=== PATIENT | male | born 1990 | race Caucasian/White ===

== ENCOUNTER 2017-03-25 14:41 | Inpatient (IN) | payer BC, OTHER ==
[~2017-03-25] VITALS: Ht 175.3 cm; Wt 61.2 kg
[2017-03-25] MEDS ORDERED: CLONIDINE HCL 0.1 MG TABLET PO PRN (16:45)
[2017-03-25] MEDS ORDERED: MAGNESIUM HYDROXIDE 30 ML LIQUID UDC PO PRN (16:45)
[2017-03-25] MEDS ORDERED: IBUPROFEN 400 MG TABLET PO PRN (16:45)
[2017-03-25] MEDS ORDERED: LORAZEPAM 1 MG TABLET PO PRN ×2 (16:45)
[2017-03-25] MEDS ORDERED: MAG HYDROX/AL HYDROX/SIMETH 30 ML LIQUID UDC PO PRN (16:45)
[2017-03-25] MEDS ORDERED: MIRALAX 17 GM POWD.PACK PO PRN (16:45)
[2017-03-25] MEDS ORDERED: ONDANSETRON 4 MG/2 ML VIAL IM PRN (16:45)
[2017-03-25] MEDS ORDERED: LOPERAMIDE HCL 2 MG CAPSULE PO PRN ×2 (16:45)
[2017-03-25] MEDS ORDERED: LORAZEPAM 2 MG/1 ML VIAL IM PRN (16:45)
[2017-03-25] MEDS ORDERED: DICYCLOMINE HCL 20 MG TABLET PO PRN (16:45)
[2017-03-25] MEDS ORDERED: THIAMINE HCL 200 MG/2 ML VIAL IM ONE (17:35)
--- NOTE | 2017-03-25 17:36 | NUR ---
intake pre-assessment: pt is in stable condition at this time V/S B/P: 120/81, P:78,T:97.0, R:16, 02%: 99. PT verbalized nka. pt without home medications. pt states he smokes 1 pack a day, drinks 80 oz of beer and 1/5 of hard alcohol, either Gin or whiskey. last drank at 0230 am. Pt also verbalizes he uses cocaine 1 gram to 2 grams every other day. pt with treatment HX: [facility], 3 years ago and [facility] for 8 months and has relapsed for the past 2 months. pt without home medications. Pt verbalized medical hx of Depression and Anxiety. Pt reports no seizure hx.
[2017-03-25 18:00] VITALS: BP 120/81
[2017-03-25 18:25] LABS: *AMPHETAMINE, URINE NEGATIVE (NEGATIVE); *BARBITURATE, URINE NEGATIVE (NEGATIVE); *CANNABINOID, URINE NEGATIVE (NEGATIVE); *COCCAINE, URINE POSITIVE (NEGATIVE); *OPIATE, URINE NEGATIVE (NEGATIVE); *PHENCYCLIDINE SCREEN,URINE NEGATIVE (NEGATIVE)
--- NOTE | 2017-03-25 18:30 | NUR ---
ADMISSION NOTE: Patient is 26 yo old male admitted at 18:00pm for supervised alcohol withdrawal. Alert and oriented X4, full code, nka, on fall and seizure precaution (no history of seizure). Denies SOB, chest pain, skin is intact with small abrasion on L elbow, open to air. CIWA was 9. Reports headache, sweating, anxiety, nausea and tactile sensation. Declined HIV testing and declined vit B injection at this time. Patient was oriented to unit, breaux routines, call lights. Substance use history: 1) Alcohol using 80oz beer and 1/5 hard alcohol X 2 months, last use 03/27/17 and used 60 oz beer and bottle of hard alcohol 2) Cocaine 1-2g (intermittent) X2 weeks, last use 03/24/17 and used 2 g Rehab history: [facility] 1 year (13 years ago) [facility] 8 months Addendum: 03/29/17 at 0850 by KELI SCHWARTZ RN Pt denies having a PCP
[2017-03-25 19:07] LABS: ALANINE AMINOTRANSFERASE 24 U/L (16-63); ALKALINE PHOSPHATASE 86 U/L (50-136); AMYLASE 34 U/L (25-115); ASPARTATE AMINOTRANSFERASE 25 U/L (15-37); CARBON DIOXIDE 32 mmol/L (21-32); CHLORIDE 99 mmol/L (98-107); CREATININE 0.9 mg/dL (0.6-1.3); GLUCOSE 80 mg/dL (74-106); LIPASE 152 U/L (73-393); MAGNESIUM 2.1 mg/dL (1.8-2.4); POTASSIUM 3.8 mmol/L (3.5-5.1); TOTAL PROTEIN, SERUM 8.1 g/dL (6.4-8.2); UREA NITROGEN, BLOOD 11 mg/dL (7-18)
[2017-03-25 19:12] LABS: BASOPHILS # (AUTO) 0.1 K/uL (0.0-8.0); EOSINOPHILS # (AUTO) 0.1 K/uL (0.0-0.7); EOSINOPHILS % (AUTO) 0.8 % (0.0-7.0); HEMATOCRIT 46.9 % (40-50); HEMOGLOBIN 15.7 G/DL (14.0-18.0); LYMPHOCYTES # (AUTO) 1.4 K/UL (0.8-4.8); LYMPHOCYTES % (AUTO) 19.8 % (20.5-51.5); MEAN CORPUSCULAR HGB CONC 33 g/dL (32.0-37.0); MEAN CORPUSCULAR VOLUME 92.6 FL (82.0-92.0); MONOCYTES # (AUTO) 0.7 K/UL (0.1-1.30); MONOCYTES % (AUTO) 10.6 % (0.0-11.0); NEUTROPHILS # (AUTO) 4.5 K/UL (1.8-8.9); NEUTROPHILS % (AUTO) 67.8 % (38.5-71.5); PLATELET COUNT (AUTO) 223 K/UL (150-450); RED BLOOD CELL COUNT(AUTO) 5.07 MIL/UL (4.7-6.1); WHITE BLOOD COUNT (AUTO) 6.8 K/UL (4.0-11.2)
[2017-03-25 19:13] LABS: ETHANOL < 3 MG/DL (0-0)
[2017-03-25 19:18] LABS: THYROID STIMULATING HORMONE 0.938 mIU/mL (0.358-3.740)
[2017-03-25 20:00] VITALS: BP 123/61
--- NOTE | 2017-03-25 20:00 | NUR ---
START OF SHIFT NOTE PATIENT IN ROOM, RESTING . PATIENT ALERT AND ORIENTED X 3. PATIENT REPORTS ANXIETY, SWEATING, NAUSEATED BUT NO EMESIS, HEADACHE /. RECEIVED REPORT FROM DAY SHIFT NURSE. PATIENT IS A 26 YEAR OLD MALE NEWLY ADMITTED FOR ETOH DEPENDENCE. PATIENT WAS PLACED ON 4 DAY ATIVAN TAPER. PATIENT IS FULL CODE, REGULAR DIET AND NO KNOWN ALLERGY. PATIENT REPORTS PMH OF DEPRESSION AND ANXIETY. PATIENT DRINKS 80 OZ OF BEER AND 1/5 OF HARD ALCOHOL GIN OR WHISKEY FOR 2 MONTHS AND USE COCAINE 1-2 GRAM INTERMITTENTLY FOR 2 WEEKS . PATIENT WITH LEFT ELBOW ABRASION. ON FALL/SEIZURE PRECAUTION. LAST CIWA WAS 9 . PATIENT REFUSED THIAMINE INJECTION. PATIENT DID NOT REQUIRE ANY PRN MEDICATION. SAFETY MEASURES IN PLACE. CALL LIGHT IN REACH. WILL CONTINUE TO MONITOR.
[2017-03-25] MEDS: ACETAMINOPHEN 325 MG TABLET PO PRN (20:40)
--- NOTE | 2017-03-25 20:40 | NUR ---
PRN ZOFRAN AND TYLENOL ADMINISTRATION PATIENT REPORTS NAUSEATED NO EMESIS AND HEADACHE 03/10. PRN ZOFRAN AND TYLENOL GIVEN. WILL MONITOR FOR EFFECTIVENESS
[2017-03-25] MEDS: ONDANSETRON ODT 4 MG TAB.RAPDIS SL PRN (20:41)
[2017-03-25] MEDS ORDERED: LORAZEPAM 1 MG TABLET PO SCH (21:00)
--- NOTE | 2017-03-25 21:41 | NUR ---
PRN ZOFRAN AND TYLENOL RE-ASSESSMENT PATIENT STATES NAUSEA CEASES , TYLENOL HELPFUL PAIN LEVEL 2/10, TOLERABLE . WILL CONTINUE TO MONITOR.
[2017-03-26] VITALS (7 sets, daily range): BP systolic 102–130; BP diastolic 60–76
[2017-03-26] MEDS: diphenhydrAMINE 50 MG CAPSULE PO PRN ×2 (00:54→22:55)
--- NOTE | 2017-03-26 00:54 | NUR ---
PRN BENADRYL ADMINISTRATION PATIENT REQUESTS FOR SLEEP AID. PRN BENADRYL GIVEN. WILL MONITOR FOR EFFECTIVENESS
--- NOTE | 2017-03-26 01:54 | NUR ---
PRN BRENT RE-ASSESSMENT PATIENT IN BED SLEEP. RESPIRATION EVEN AND UNLABORED. NO S/S OF DISTRESS. SAFETY MEASURES IN PLACE . CALL LIGHT IN REACH. WILL CONTINUE TO MONITOR
--- NOTE | 2017-03-26 07:16 | NUR ---
END OF SHIFT NOTE MONITORED PATIENT THROUGHOUT THE SHIFT. PATIENT REMAIN ALERT AND ORIENTED X 3. PATIENT REPORTED ANXIETY, SWEATING, NAUSEATED BUT NO EMESIS, HEADACHE /. PATIENT IS A 26 YEAR OLD MALE NEWLY ADMITTED FOR ETOH DEPENDENCE. PATIENT WAS PLACED ON 4 DAY ATIVAN TAPER. PATIENT IS FULL CODE, REGULAR DIET AND NO KNOWN ALLERGY. PATIENT REPORTS PMH OF DEPRESSION AND ANXIETY. PATIENT DRINKS 80 OZ OF BEER AND 1/5 OF HARD ALCOHOL GIN OR WHISKEY FOR 2 MONTHS AND USE COCAINE 1-2 GRAM INTERMITTENTLY FOR 2 WEEKS . PATIENT WITH LEFT ELBOW ABRASION. PATIENT WAS GIVEN ZOFRAN AND TYLENOL AT 2039, EFFECTIVE AND BENADRYL FOR SLEEP AT 4. ON FALL/SEIZURE PRECAUTION .PATIENT COMPLIANT WITH MEDICATION .REMAIN FREE OF INJURY DURING SHIFT. REMAIN FREE OF SEIZURE. SAFETY MEASURES IN PLACE. CALL LIGHT IN REACH. WILL CONTINUE TO MONITOR. SLEPT 8 HOURS.FLUID INTAKE 591 ML. VOIDED X 1 . NO BM. LAST CIWA 2 .
--- NOTE | 2017-03-26 08:00 | NUR ---
START OF SHIFT Patient is laying comfortably in bed with eyes closed, resting, and easily aroused. Respiration rate 16 unlabored. Vital signs WNL. Patient slept 8 hours last night. Bed in lowest position with side rails X2 up. Call light within reach. No distress noted at this time.
[2017-03-26] MEDS ORDERED: TUBERCULIN,PURIF.PROT.DERIV. 5 TU/0.1 ML TEST ID ONE (09:00)
[2017-03-26] MEDS: THIAMINE HCL 100 MG TABLET PO SCH (09:17)
[2017-03-26] MEDS: FOLIC ACID 1 MG TABLET PO SCH (09:18)
[2017-03-26] MEDS: LORAZEPAM 1 MG TABLET PO SCH ×3 (09:18→20:39)
[2017-03-26] MEDS: MULTIVITAMINS,THERAPEUTIC TABLET PO SCH (09:18)
[2017-03-26] MEDS ORDERED: LORAZEPAM 1 MG TABLET PO ONE ×2 (12:00→17:00)
--- NOTE | 2017-03-26 13:32 | NUR ---
Therapist continued to encourage client to attend daily group psychotherapy. Client expressed that he was willing to continue his participation and will attend at 3:30pm.
[2017-03-26] MEDS: ONDANSETRON ODT 4 MG TAB.RAPDIS SL PRN (16:36)
--- NOTE | 2017-03-26 16:38 | NUR ---
PRN MEDICATION GIVEN Patient complained of a headache and nausea. Zofran and motrin was given. Will reassess patient in 30 mins.
--- NOTE | 2017-03-26 17:13 | NUR ---
ONE TIME DOSE Patient complaining of headache, nausea,and increased anxiety, with visible gross tremors. CIWA 7. Dr. [facility] was notified and ordered a one time dose of Ativan 2mg.
--- NOTE | 2017-03-26 17:36 | NUR ---
PRN EVALUATION patient's nausea has decreased as well as his headache. CIWA score is 3
--- NOTE | 2017-03-26 18:47 | NUR ---
END OF SHIFT Patient is a full code 26 year old male with NKA. He is on a 4 day Ativan taper. Day 1 of 4. Tolerating well. Chief complaint is body aches, chills, and hip pain. Patient as been experiencing hand tremors. Vital signs have been stable last DI=166/76 P=97 RR=16 O2=98 . All needs have been met. Patient has been complaint with medications. Safety measures in place; call light within reach, bed in low position,and side rails up X2.last CIWA=3. An extra dose of Ativan 2mg was given per Dr. [facility] for patient complaining of increased anxiety and gross hand tremors. Patient has participated in group activities during the day. Will pass report to cnc machinist 2nd shift.
--- NOTE | 2017-03-26 20:05 | NUR ---
START OF SHIFT Received report from day shift nurse. Pt attended a group meeting and returned to his room after. He is a 26 yo male admitted to [facility] on 03/25 for ETOH dependence. He is A&O x4 and ambulatory. NKA, full code status, and on a regular diet. He has a PMH of depression and anxiety. On admission he reported using beer 80 ounces and 750mL of hard liquor per day as well as cocaine 1-2 grams per day. He started a 4 day Ativan taper today. Pt presents with headache, sweating, and mild tremors. Taper due tonight. Fall and seizure precautions in place. Bed is down with call light in reach.
[2017-03-26] MEDS: ACETAMINOPHEN 325 MG TABLET PO PRN (20:40)
--- NOTE | 2017-03-26 20:40 | NUR ---
PRN Tylenol administration Pt c/o mild headache. PRN Tylenol administered.
--- NOTE | 2017-03-26 22:56 | NUR ---
PRN Benadryl administration Pt reports inability to sleep. PRN Benadryl administered.
--- NOTE | 2017-03-26 23:56 | NUR ---
PRN Benadryl reassessment PRN Benadryl effective. Pt is lying in bed resting with eyes closed. Respirations even and unlabored. Safety measures in place.
[2017-03-27] VITALS: BP 111/65
[2017-03-27 04:00] VITALS: BP 114/61
--- NOTE | 2017-03-27 04:00 | NUR ---
0400 CIWA deferred Pt is lying in bed resting with eyes closed. Respirations even and unlabored. Vital signs obtained. 0400 CIWA ordered Q4HWA.
--- NOTE | 2017-03-27 07:04 | NUR ---
END OF SHIFT Report provided to day shift nurse. Pt is lying in bed resting. He is a 26 yo male admitted to [facility] on 03/25 for ETOH dependence. He is A&O x4 and ambulatory. NKA, full code status, and on a regular diet. He has a PMH of depression and anxiety. On admission he reported using beer 80 oz and 1/5 hard liquor per day and cocaine 1-2 grams per day. He started a 4 day Ativan taper on 03/26. PRN Tylenol and Benadryl administered. Last CIWA 4. He drank 1000mL and slept for 7 hours. Fall and seizure precautions in place. Bed is down with call light in reach.
--- NOTE | 2017-03-27 07:31 | NUR ---
Start of shift note; Received report from night nurse. Patient is a 03/25/17 for ETOH/cocaine dependence. Patient was placed on 4 day Ativan taper, no adverse reactions noted. Patient reported history of depression, anxiety. Patient is on regular diet, NKA, on full code status. Healed left elbow abrasion noted. Patient is on fall and seizure precaution. All safety measures secured. Will continue to monitor patient.
[2017-03-27 08:00] VITALS: BP 129/80
[2017-03-27] MEDS: LORAZEPAM 1 MG TABLET PO SCH ×4 (08:33→20:39)
[2017-03-27] MEDS: THIAMINE HCL 100 MG TABLET PO SCH (08:33)
[2017-03-27] MEDS: MULTIVITAMINS,THERAPEUTIC TABLET PO SCH (08:33)
[2017-03-27] MEDS: FOLIC ACID 1 MG TABLET PO SCH (08:33)
[2017-03-27 12:00] VITALS: BP 123/74
[2017-03-27 13:45] LABS: HEPATITIS B SURFACE AG Negative (Negative)
[2017-03-27] MEDS: GABAPENTIN 300 MG CAPSULE PO SCH ×2 (14:11→20:39)
[2017-03-27 16:00] VITALS: BP 109/59
--- NOTE | 2017-03-27 18:18 | NUR ---
End of shift note; Patient is AOX4. Patient is a 03/25/17 for ETOH/cocaine dependence. Patient was placed on 4 day Ativan taper, no adverse reactions noted. Patient reported history of depression, anxiety. Patient is on regular diet, NKA, on full code status. Healed left elbow abrasion noted. Patient is on fall and seizure precaution. Patient remained compliant with treatment plan and medication regime. Medications were effective in reducing withdrawal symptoms. All safety measures secured. Met all needs.
--- NOTE | 2017-03-27 20:05 | NUR ---
START OF SHIFT Received report from day shift nurse. Pt attended a group meeting and returned to his room after. He is a 26 yo male admitted to [facility] on 03/25 for ETOH dependence. He is A&O x4 and ambulatory. NKA, full code status, and on a regular diet. He has a PMH of depression and anxiety. On admission he reported using beer 80 ounces and 750mL of hard liquor per day as well as cocaine 1-2 grams per day. He started a 4 day Ativan taper 03/26. Pt reports mild headache, anxiety, and is noted with flushing, moist skin, and mild hand tremors. Taper due tonight. Fall and seizure precautions in place. Bed is down with call light in reach.
[2017-03-27 22:00] VITALS: BP 132/73
[2017-03-27] MEDS: diphenhydrAMINE 50 MG CAPSULE PO PRN (23:15)
--- NOTE | 2017-03-27 23:18 | NUR ---
PRN Benadryl Pt reports inability to sleep. PRN Benadryl administered.
[2017-03-28] VITALS: BP 121/69
--- NOTE | 2017-03-28 04:00 | NUR ---
0400 Vitals refused. CIWA deferred. Pt refused to be woken for 0400 vitals. Respirations even and unlabored. CIWA ordered Q4HWA.
--- NOTE | 2017-03-28 07:05 | NUR ---
END OF SHIFT Report provided to day shift nurse. Pt is lying in bed resting. He is a 26 yo male admitted to [facility] on 03/25 for ETOH dependence. He is A&O x4 and ambulatory. NKA, full code status, and on a regular diet. He has a PMH of depression and anxiety. On admission he reported using beer 80 ounces and 750mL of hard liquor per day as well as cocaine 1-2 grams per day. He started a 4 day Ativan taper 03/26. PRN Benadryl administered. Last CIWA 5. He drank 700mL and slept for 6 hours. Pt is compliant with treatment. Fall and seizure precautions in place. Bed is down with call light in reach.
[2017-03-28 08:00] VITALS: BP 108/63
--- NOTE | 2017-03-28 08:00 | NUR ---
START OF SHIFT: RECEIVED PT A/O X 4. HE PRESENTS WITH ANXIOUS MOOD AND CONGRUENT AFFECT. HE REPORTS SOME ANXIETY AND RESTLESS.HE STATES HE SLEPT OK . ATIVAN TAPER IN PROGRESS. CIWA 4. HE STATES HE WILL ATTEND GROUPS AND ACTIVITIES TODAY.ENCOURAGED INCREASED FLUIDS TO ASSIST IN FACILITATING DETOX PROCESS. WILL CONTINUE TO MONITOR AND OFFER SUPPORT.
[2017-03-28] MEDS: FOLIC ACID 1 MG TABLET PO SCH (08:34)
[2017-03-28] MEDS: LORAZEPAM 1 MG TABLET PO SCH ×3 (08:34→21:22)
[2017-03-28] MEDS: MULTIVITAMINS,THERAPEUTIC TABLET PO SCH (08:34)
[2017-03-28] MEDS: THIAMINE HCL 100 MG TABLET PO SCH (08:34)
[2017-03-28] MEDS: GABAPENTIN 300 MG CAPSULE PO SCH ×2 (08:34→14:27)
[2017-03-28 12:00] VITALS: BP 113/79
[2017-03-28] MEDS: CLONIDINE HCL 0.1 MG TABLET PO PRN ×2 (12:36→21:22)
--- NOTE | 2017-03-28 12:40 | NUR ---
PT REPORTS FEELING ANXIOUS AND RESTLESS. PRN CLONIDINE GIVEN. WILL MONITOR EFFECTIVENESS.
--- NOTE | 2017-03-28 13:30 | NUR ---
PT STATES CLONIDINE WAS EFFECTIVE.
[2017-03-28 16:00] VITALS: BP 116/63
--- NOTE | 2017-03-28 18:27 | NUR ---
END OF SHIFT: PT CONTINUES ON A MODIFIED ATIVAN TAPER.LAST CIWA 3. PT C/O ANXIETY AND RESTLESSNESS EARLIER IN SHIFT AND PRN CLONIDINE GIVEN AND EFFECTIVE. HE ATTENDED GROUPS AND ACTIVITIES. HE STATES HE FEELS MOTIVATED TOWARD RECOVERY. HE IS COMPLIANT WITH INCREASING FLUIDS. WILL PASS SHIFT REPORT TO ONCOMING NIGHT NURSE.
[2017-03-28 20:00] VITALS: BP_SYST 118; BP_SYST 129; BP_DIAS 75; BP_DIAS 77
--- NOTE | 2017-03-28 20:00 | NUR ---
1999 Patient received awake, alert and ambulating back to his room # [id number] from [facility] group in recreation room. Gait is steady. Patient responds to nurse's greeting and introduction with a smile and, " Hi, how are you?" Patient is oriented to person, place, day, date, time and his personal situation. Patient's color is pink ans his skin is warm, dry and intact. Lung sounds are clear bilaterally and active bowel sounds are noted X 4 abdominal Quads, per auscultation. Patient states that he has been taking his Regular diet tray and taking fluids ad afua with no real gastric issues so far. He states further that he has been attending [facility] [employer] regularly and trying to do all that is asked of him here at [facility]. Vital signs are: 97.6-90-18 129/75, O2 Sat 97%, CIWA 6. Patient denies any pain at this time. Fall/Seizure precautions continue. Patient was admitted on 03/25/17 for Alcohol and Cocaine withdrawal and he is currently on a 4-Day Ativan medication taper, which he has apparently been tolerating well thus far. Patient is friendly, cooperative and verbally appropriate when interacting with nurse at this time, though he does present slightly anxious and fidgety. Patient states that he will be going to the hospital patio soon to have a smoke. Bed is locked and in lowest position, bed rails are up X 2 and call light within patient's easy reach.
[2017-03-28] MEDS ORDERED: GABAPENTIN 300 MG CAPSULE PO SCH (21:00)
--- NOTE | 2017-03-28 21:22 | NUR ---
PRN MEDICATION: Prn Catapres 0.1 mg p.o. given per request for c/o " a lot of anxiety, really high", increasing agitation, CIWA 6, 129/75.
--- NOTE | 2017-03-28 22:22 | NUR ---
REASSESSMENT PRN MEDICATION: Patient is downstairs on hospital patio for smoking. Unable to assess at this time.
[2017-03-28] MEDS: diphenhydrAMINE 50 MG CAPSULE PO PRN (23:59)
--- NOTE | 2017-03-28 23:59 | NUR ---
PRN MEDICATION: Prn Benadryl 50 mg p.o. given per request for sleep medication.
[2017-03-29] VITALS: BP 118/77
--- NOTE | 2017-03-29 00:59 | NUR ---
REASSESSMENT PRN MEDICATION: Patient is sleeping comfortably with eyes closed and respirations quiet, even, unlabored at 12.
--- NOTE | 2017-03-29 04:00 | NUR ---
Patient refused to be awakened for V/S to be done at this time.
--- NOTE | 2017-03-29 06:30 | NUR ---
0630 Patient slept a total of 5 hours and he had 2 voids and 1 stools. Total intake was 1,200 ml p.o. Prn medications given noted separately per floor protocol. V/SS afebrile. Last CIWA was 3. Patient is presently sleeping comfortably with eyes closed and respirations quiet, even, unlabored at 12. Patient is in stable condition at this time.
[2017-03-29 08:00] VITALS: BP 104/65
--- NOTE | 2017-03-29 08:00 | NUR ---
START OF SHIFT: RECEIVED PT A/O X 4. HE STATES HE SLEPT OK. HE REPORTS SOME MILD ANXIETY AND IRRITABILITY. ATIVAN TAPER IN PROGRESS. CIWA 2. HE REPORTS HE IS EATING WELL AND ATTENDING GROUPS AND ACTIVITIES. ENCOURAGED INCREASED FLUIDS TO ASSIST IN FACILITATING DETOX PROCESS. WILL CONTINUE TO MONITOR AND OFFER SAFE AND SUPPORTIVE ENVIRONMENT.
[2017-03-29] MEDS: GABAPENTIN 300 MG CAPSULE PO SCH ×3 (08:40→21:00)
[2017-03-29] MEDS: THIAMINE HCL 100 MG TABLET PO SCH (08:41)
[2017-03-29] MEDS: FOLIC ACID 1 MG TABLET PO SCH (08:41)
[2017-03-29] MEDS: MULTIVITAMINS,THERAPEUTIC TABLET PO SCH (08:41)
[2017-03-29] MEDS ORDERED: LORAZEPAM 1 MG TABLET PO SCH ×2 (09:00)
[2017-03-29 12:00] VITALS: BP 126/68
[2017-03-29] MEDS: ESCITALOPRAM OXALATE 10 MG TABLET PO SCH (13:00)
[2017-03-29] MEDS: CLONIDINE HCL 0.1 MG TABLET PO PRN ×2 (13:01→22:11)
--- NOTE | 2017-03-29 13:05 | NUR ---
PRN CLONIDINE GIVEN FOR REPORTED ANXIETY AND RESTLESSNESS.A. NEW ORDER FOR LEXAPRO ORDERED BY PSYCH .
[2017-03-29 16:00] VITALS: BP 118/68
[2017-03-29] MEDS ORDERED: ESCI10TA PO (17:36)
[2017-03-29] MEDS ORDERED: Ibuprofen PO (17:36)
[2017-03-29] MEDS ORDERED: Gabapentin PO (17:36)
[2017-03-29] MEDS ORDERED: DIPH50CA37 PO (17:36)
[2017-03-29 18:21] LABS: *AMPHETAMINE, URINE NEGATIVE (NEGATIVE); *BARBITURATE, URINE NEGATIVE (NEGATIVE); *CANNABINOID, URINE NEGATIVE (NEGATIVE); *COCCAINE, URINE NEGATIVE (NEGATIVE); *OPIATE, URINE NEGATIVE (NEGATIVE); *PHENCYCLIDINE SCREEN,URINE NEGATIVE (NEGATIVE)
--- NOTE | 2017-03-29 18:46 | NUR ---
END OF SHIFT: PT CONTINUES ON A MODIFIED ATIVAN TAPER.LAST CIWA 2. PT C/O ANXIETY AND RESTLESSNESS EARLIER IN SHIFT AND PRN CLONIDINE GIVEN AND EFFECTIVE. HE ATTENDED GROUPS AND ACTIVITIES. HE WAS COMPLIANT WITH INCREASED FLUIDS. HE STATES HE IS EATING 100% OF MEALS. WILL PASS SHIFT REPORT TO ONCOMING NURSE.
[2017-03-29 20:00] VITALS: BP 123/67
--- NOTE | 2017-03-29 20:00 | NUR ---
1999 Patient received awake, alert and just [facility] # [id number]. Gait is steady. Patient greets nurse with a smile and, " You my nurse again tonight?" Patient is oriented to person, place, day, date, time and his personal situation. Patient's color is pink and his skin is clean, warm, dry and intact. Patient states that he continues to take his Regular diet trays completely, while also taking fluids ad afua, with no real gastric issues noted. Patient states further that he continues to attend and participate in all [facility] groups. Vital signs are: 97.9-87-20 123/67, O2 Sat 99%, CIWA 2. Patient denies any pain or other discomforts at this time. Patient states that he is looking forward to his discharge tomorrow, though he admits that he is " a little nervous about this. Calm reassurances and encouragement then given to patient. Patient was admitted on 03/25/17 for Alcohol and Cocaine withdrawal and his 4-Day Ativan medication taper has been completed at this time. Patient's mood/affect is bright, friendly and he is cooperative and verbally appropriate when interacting with nurse. Patient states that he will be going down to hospital patio soon for a smoke break. Fall/Seizure precautions continue. Bed is locked and in lowest position, padded bed rails are up X 2 and call light within patient's easy reach.
--- NOTE | 2017-03-29 22:11 | NUR ---
PRN MEDICATION: Prn Catapres 0.1 mg p.o. given per request for c/o increasing anxiety and agitation. Patient states, " I'm a little nervous about tomorrow. I'm getting discharged you know".
--- NOTE | 2017-03-29 23:11 | NUR ---
REASSESSMENT PRN MEDICATION: Patient is watching television in rec room along with other patients. Patient states that Prn Catapres 0.1 mg p.o. given was effective.
--- NOTE | 2017-03-30 | NUR ---
Patient refused to be awakened to have V/S done at this time.
--- NOTE | 2017-03-30 04:00 | NUR ---
Patient refused to be awakened to have V/S done at this time.
--- NOTE | 2017-03-30 06:30 | NUR ---
0630 Patient slept a total of 5 hours and he had 3 voids and no stools. Total intake was 2,855 ml p.o. Prn medication given noted separately per floor protocol. V/SS afebrile, Last CIWA 2. Patient is presently resting comfortably with eyes closed and respirations quiet, even, unlabored at 12. Patient is in stable condition at this time.
--- NOTE | 2017-03-30 07:10 | NUR ---
Start of shift note SBAR report rcv'd. Pt was admitted for ETOH dependence and cocaine use. Pt has a PMHx of anxiety and depression. Pt is on a regular diet, has NKA and is a full code. Pt has successfully completed a 4 day ativan taper without any ASE. Pt is scheduled to discharge today to [facility]. Pt is ambulating on unit, pt has no complaints at this time. Will continue to monitor pt. All needs addressed.
[2017-03-30 08:00] VITALS: BP 109/67
[2017-03-30] MEDS: GABAPENTIN 300 MG CAPSULE PO SCH (08:24)
[2017-03-30] MEDS: ESCITALOPRAM OXALATE 10 MG TABLET PO SCH (08:24)
[2017-03-30] MEDS: FOLIC ACID 1 MG TABLET PO SCH (08:25)
[2017-03-30] MEDS: THIAMINE HCL 100 MG TABLET PO SCH (08:25)
[2017-03-30] MEDS: MULTIVITAMINS,THERAPEUTIC TABLET PO SCH (08:25)
--- NOTE | 2017-03-30 09:32 | NUR ---
Discharge note Pt was admitted for ETOH dependence and cocaine abuse. Pt VS are WNL. Pt had a CIWA of 1. Pt LBM 03/29/17. Denies SI/HI. Pt states that he feels ready for discharge, verbalized his understanding of the discharge instructions. Pt prescriptions, discharge packet and valuables returned to pt. All belongings returned to pt. ID band removed, pt ambulated off of unit with [facility], left facility via [facility] for [facility].
== END 2017-03-30 09:32 | disposition home or self-care (01) | DRG 895 ==
LOC: SRC 16:35 → EDSEX 16:35
PROVIDERS: ADMIT Internal Medicine; ATTEND Internal Medicine
PROC: HZ2ZZZZ Detoxification Services for Substance Abuse Treatment (ICD-10-PCS; principal; 2017-03-25)
PROC: HZ31ZZZ Individual Counseling for Substance Abuse Treatment, Behavioral (ICD-10-PCS; 2017-03-26)
PROC: HZ41ZZZ Group Counseling for Substance Abuse Treatment, Behavioral (ICD-10-PCS; 2017-03-28)
DX: F10.230 Alcohol dependence with withdrawal, uncomplicated (principal); Y90.9 Presence of alcohol in blood, level not specified; Z81.8 Family history of other mental and behavioral disorders; Z81.1 Family history of alcohol abuse and dependence; Z80.9 Family history of malignant neoplasm, unspecified; F41.0 Panic disorder [episodic paroxysmal anxiety]; F17.210 Nicotine dependence, cigarettes, uncomplicated; F14.10 Cocaine abuse, uncomplicated; F32.9 Major depressive disorder, single episode, unspecified; D75.89 Other specified diseases of blood and blood-forming organs
CPT/HCPCS: 36415; 70030-TC; 80307; 80353; 83690; 83735; 84443; 85025; 86592; 86705; 86803; 87340; 87806; A4663; G6040-TC; Q0162; Q0163

== ENCOUNTER 2018-03-01 08:14 | Inpatient (IN) | payer BC, OTHER ==
[~2018-03-01] VITALS: Ht 172.7 cm; Wt 59.0 kg
[~2018-03-01 08:14] MED LIST: DIPH50CA37 PO; ESCI10TA PO; Gabapentin PO; Ibuprofen PO
[2018-03-01 12:39] VITALS: BP 138/83
--- NOTE | 2018-03-01 12:39 | NUR ---
Pre-admission Notes: Client is see in intake at this time. Noted with sweaty palms and fidgety. He appears anxious but cooperative. He is alert and oriented x 4. Able to verbalize good understanding regarding the admission process. Able to provide consent regarding the admission process. He denies any allergies. Denies seizure history. But reports past medical hx of anxiety, depression and appendectomy. He states "I'm here for drugs and alcohol." He reports using beer, cocaine and methamphetamine. He appears acutely intoxicated at this time. CIWA 4. VS: BP: 138/83, Pulse 93, RR 16, Temp 98.1, PL 0/10, O2 saturation: 98% RA. Will continue with the admission when patient arrives in the unit. Notified MD of patient's arrival in the unit.
[2018-03-01] MEDS ORDERED: ONDA4TAB8 PO (12:41)
[2018-03-01] MEDS ORDERED: PENI500T PO (12:41)
[2018-03-01] MEDS ORDERED: NALT50TA PO (12:41)
[2018-03-01] MEDS ORDERED: GABA-532 PO (12:41)
--- NOTE | 2018-03-01 12:42 | NUR ---
Admission Note: Admitted at 27 year old male who presents to [facility] for medically supervised withdrawal from ETOH/methamphetamine under the care of Dr. Rayo [facility]. Patient is alert and oriented x 4. Verbally responsive. Denies S/I or H/I. Denies AV hallucinations. He appears anxious, fidgety, restless. Stating "I'm so high right now." He is acute intoxicated at the time of arrival in the unit. Safe environment provided. Breathing even and unlabored. No SOB noted. Skin warm and dry to touch. Skin check done. No skin breakdown noted. Body search done by male staff. No contraband was found. Patient brought in his own home meds but states that he does not want to take it back when he discharges. Abdomen soft and non-distended. BS (+) in all 4 quadrants. LBM 02/28/2018. Bladder soft and non-distended. He is able to void independently and was able to provide urine for UDS. Ambulatory ad afua with steady gait. Patient reports currently achieving 5 months of sobriety but relapsed for 2 months due to a recent job loss. He reports that his longest period of sobriety was 2 years which he achieved from 2013 to 2015. Patient denies having a PCP at this time. He smoked 1 pack of cigarettes daily. Educated patient on smoking cessation. He reports family hx of ETOH absue, cancer and depression. Substance Use: 1. ETOH (beer) - since 14 years old. Drinks 120 oz of beer (8% ABV) daily x 2 months, last use was the day of admission, 120 oz. of beer. 2. Methamphetamine - Snorts/smokes 1 gram to 1.5 grams daily x 2 months. Last use was at the day of admission, 2 grams. 3. Cocaine - snorts 1 gram to 1.5 grams daily. Last use was 6 weeks prior to admission. 4. Heroin - x 1 during this this relapse x 1 week prior to this admission. Treatment History: 1. [facility] x 1 year - 14 years ago 2. [facility] - 8 months in 2017 3. [facility] 03/25/2017 to 03/30/2017 4. [facility] - 03/30/2017 x 8 months Orientation to the facility provided. Dr. [facility] entered in admission orders. All needs met and attended. Safety precautions in place. Educated patient on his current plan of care and his medication regimen. Will continue to monitor and provide support. Addendum: 03/01/18 at 1349 by VILMA YEE LVN Additional Substance Use: 5. Marijuana - smokes 1 gram daily x 2 months. Last use was on 02/28/2018.
[2018-03-01] MEDS ORDERED: THIAMINE HCL 200 MG/2 ML VIAL IM ONE (12:45)
[2018-03-01] MEDS ORDERED: LOPERAMIDE HCL 2 MG CAPSULE PO PRN ×2 (12:45)
[2018-03-01] MEDS ORDERED: MIRALAX 17 GM POWD.PACK PO PRN (12:45)
[2018-03-01] MEDS ORDERED: ONDANSETRON ODT 4 MG TAB.RAPDIS SL PRN (12:45)
[2018-03-01] MEDS ORDERED: MAG HYDROX/AL HYDROX/SIMETH 30 ML LIQUID UDC PO PRN (12:45)
[2018-03-01] MEDS ORDERED: ONDANSETRON 4 MG/2 ML VIAL IM PRN (12:45)
[2018-03-01] MEDS ORDERED: ACETAMINOPHEN 325 MG TABLET PO PRN (12:45)
[2018-03-01] MEDS ORDERED: LORAZEPAM 2 MG/1 ML VIAL IM PRN (12:45)
[2018-03-01] MEDS ORDERED: MAGNESIUM HYDROXIDE 30 ML LIQUID UDC PO PRN (12:45)
[2018-03-01] MEDS ORDERED: LORAZEPAM 1 MG TABLET PO PRN ×2 (12:45)
[2018-03-01 13:37] LABS: *AMPHETAMINE, URINE POSITIVE (NEGATIVE); *BARBITURATE, URINE NEGATIVE (NEGATIVE); *CANNABINOID, URINE POSITIVE (NEGATIVE); *COCCAINE, URINE NEGATIVE (NEGATIVE); *OPIATE, URINE NEGATIVE (NEGATIVE); *PHENCYCLIDINE SCREEN,URINE NEGATIVE (NEGATIVE)
[2018-03-01] MEDS: CLONIDINE HCL 0.1 MG TABLET PO PRN (13:54)
--- NOTE | 2018-03-01 13:54 | NUR ---
Clonidine 0.1mg PO given: Clonidine 0.1mg PO given due to BP 148/93. Pulse 97. Denies headache, dizziness and or light headedness. Will monitor for effectiveness.
--- NOTE | 2018-03-01 14:54 | NUR ---
Re-assessment: Clonidine Patient's blood pressure 132/80, Pulse 87. Clonidine PRN was effective in reducing patient's blood pressure.
[2018-03-01 15:54] LABS: BASOPHILS # (AUTO) 0.1 K/uL (0.0-8.0); BASOPHILS % (AUTO) 0.6 % (0.0-2.0); EOSINOPHILS # (AUTO) 0.3 K/uL (0.0-0.7); EOSINOPHILS % (AUTO) 2.5 % (0.0-7.0); HEMATOCRIT 45.6 % (36.7-47.1); HEMOGLOBIN 16.1 g/dL (12.5-16.3); LYMPHOCYTES # (AUTO) 1.3 K/uL (20.0-40.0); LYMPHOCYTES % (AUTO) 13.1 % (20.5-51.5); MEAN CORPUSCULAR HEMOGLOBIN 31.9 uug (23.8-33.4); MEAN CORPUSCULAR HGB CONC 35 g/dL (32.5-36.3); MEAN CORPUSCULAR VOLUME 90.6 fL (73.0-96.2); MONOCYTES # (AUTO) 0.9 K/uL (2.0-10.0); MONOCYTES % (AUTO) 8.8 % (0.0-11.0); NEUTROPHILS # (AUTO) 7.5 K/uL (1.8-8.9); PLATELET COUNT (AUTO) 253 K/uL (152-348); RED BLOOD CELL COUNT(AUTO) 5.04 MIL/uL (4.06-5.63); WHITE BLOOD COUNT (AUTO) 10.1 K/uL (3.6-10.2)
[2018-03-01 16:00] VITALS: BP 126/69
[2018-03-01 16:00] LABS: ALANINE AMINOTRANSFERASE 19 U/L (16-63); ALKALINE PHOSPHATASE 80 U/L (50-136); AMYLASE 25 U/L (25-115); ASPARTATE AMINOTRANSFERASE 16 U/L (15-37); BILIRUBIN,TOTAL 0.8 mg/dL (0.2-1.0); CARBON DIOXIDE 28 mmol/L (21-32); CHLORIDE 102 mmol/L (98-107); GLUCOSE 114 mg/dL (74-106); MAGNESIUM 2.4 mg/dL (1.8-2.4); POTASSIUM 4.3 mmol/L (3.5-5.1); TOTAL PROTEIN, SERUM 7.6 g/dL (6.4-8.2); UREA NITROGEN, BLOOD 12 mg/dL (7-18)
[2018-03-01] MEDS: LORAZEPAM 1 MG TABLET PO SCH ×2 (16:05→20:28)
[2018-03-01] MEDS: ESCITALOPRAM OXALATE 10 MG TABLET PO SCH (16:05)
[2018-03-01 16:09] LABS: ETHANOL < 3 MG/DL (0-0)
--- NOTE | 2018-03-01 19:11 | NUR ---
End of Shift Notes: Patient was admitted today for ETOH and cocaine withdrawal. He started his 5-day Ativan taper today at 1700. VS monitored closely. BP at 1354 was 143/93, medicated patient with Clonidine 0.1mg PO as ordered with help after 1 hour. Withdrawal symptoms were closely monitored. Initial CIWA 4 upon admission, last CIWA 14 prior to administration of scheduled Ativan at 1700. Patient was restless during the shift. Compliant with care and treatment. Safety precautions in place. All needs met and attended. Will continue to monitor closely.
--- NOTE | 2018-03-01 19:40 | NUR ---
Start of Shift Pt is a 27 y/o male admitted 03/01/18 for medically managed withdrawal/detox from ETOH and Methamphetamine salts, prior occasional use of Cocaine and Heroin noted. Post endorsement of hyperactivity noted, pt is found supine in bed sleeping. Room is darkened, dinner tray untouched/intact. RR 14, even and nonlabored. Pt arousable to voice. Able to answer questions and respond appropriately, able to do simple addition. Pt is visibly tremulous, forehead moist. Pt noted to be unshaven and unkempt, odor in room. Will continue to monitor for shift, promptly attending to all pt needs.
[2018-03-01 20:00] VITALS: BP 117/66
[2018-03-01] MEDS: IBUPROFEN 400 MG TABLET PO PRN (20:28)
--- NOTE | 2018-03-01 20:28 | NUR ---
PRN Med Motrin 400mg PO given for generalized body aches, 05/10 as described by pt. Will continue to monitor, reassessing patient in 1 hour, promptly attending to all needs.
--- NOTE | 2018-03-01 21:28 | NUR ---
PRN Med Reassessment Motrin 400mg PO given 1 hour prior for generalized body aches, 05/10. Pt now reports pain level decreased to 2/10. Med effective. Will continue to monitor, promptly attending to all pt needs.
[2018-03-01] MEDS: diphenhydrAMINE 50 MG CAPSULE PO PRN (22:44)
--- NOTE | 2018-03-01 22:44 | NUR ---
PRN Med Benedryl 50mg PO given per pt request for insomnia. Will continue to monitor, reassessing in 1 hour, and promptly attend to all patient needs.
--- NOTE | 2018-03-01 23:44 | NUR ---
PRN Med Reassessment Benedryl 50mg PO given 1 hour prior for insomnia. At present pt sleeping. Med effective. Will continue to monitor, promptly attending to all pt needs.
--- NOTE | 2018-03-02 | NUR ---
VS's CIWA Deferred VS's, CIWA deferred r/t pt sleeping/refused. RR 14, even and nonlabored. Will continue to monitor and promptly attend to all patient needs.
[2018-03-02 04:00] VITALS: BP 101/57
--- NOTE | 2018-03-02 06:38 | NUR ---
End of Shift Pt is a 27 y/o male admitted 03/01/18 for medically managed withdrawal/detox from ETOH and Methamphetamine salts, prior occasional use of Cocaine and Heroin noted. Pt appearing sad/depressed, affect blunted/normal, behavior withdrawn/cooperative. PRN meds for shift include: Motrin 400mg PO for generalized body aches 05/10, Benedryl 50mg PO for insomnia. Pt slept for 7 hours, with 296 mls intake, 1 voids, and 0 BMs. Will continue to monitor for until after endorsement, promptly attending to all pt needs.
--- NOTE | 2018-03-02 07:00 | NUR ---
Start Of Shift Report received from geriatric aide nurse. Pt is a 27 y/o male admitted 03/01/18 for medically managed withdrawal/detox from ETOH and Methamphetamine salts, prior occasional use of Cocaine and Heroin. Per geriatric aide nurse pt's last CIWA was a 14 Upon start of shift pt observed laying in bed watching television, upon greeting pt, pt stated "I'm starting to feel the withdrawals coming when are the Meds coming?" Pt appears disheveled anxious and had a flushed face. Pt's room has his clothes thrown around on the drawers and floor. Pt seems irritable. During assessment pt is A&Ox4 lung sounds clear bilaterally. Pt c/o withdrawal symptoms, pt is currently on a 5 day Ativan taper. Encouraged pt to drink more fluids to help facilitate with the detox process. Bed in lowest position. Side rails upx2. Call light within reach will continue to monitor and provide care.
[2018-03-02 08:00] VITALS: BP 119/68
[2018-03-02 08:06] LABS: HEPATITIS B SURFACE AG Negative (Negative)
[2018-03-02] MEDS ORDERED: TUBERCULIN,PURIF.PROT.DERIV. 5 TU/0.1 ML TEST ID ONE (09:00)
[2018-03-02] MEDS ORDERED: LORAZEPAM 1 MG TABLET PO SCH (09:00)
[2018-03-02] MEDS: THIAMINE HCL 100 MG TABLET PO SCH (09:07)
[2018-03-02] MEDS: MULTIVITAMINS,THERAPEUTIC TABLET PO SCH (09:08)
[2018-03-02] MEDS: ESCITALOPRAM OXALATE 10 MG TABLET PO SCH (09:08)
[2018-03-02] MEDS: FOLIC ACID 1 MG TABLET PO SCH (09:08)
[2018-03-02 12:00] VITALS: BP 132/71
--- NOTE | 2018-03-02 12:14 | NUR ---
PRN MEDICATION pt complain of anxiety, presented with symptoms such as sweat and tremors, as well as visual hallucinations pts CIWA score was a 14 PRN Ativan 2mg administered PO, will continue to monitor.
--- NOTE | 2018-03-02 13:14 | NUR ---
PRN Reassessment pt stated the medication was effective patients CIWA score dropped to 11, all needs met will [id number] to monitor
[2018-03-02] MEDS ORDERED: LORAZEPAM 1 MG TABLET PO ONE (14:00)
--- NOTE | 2018-03-02 14:45 | NUR ---
Therapist prompted client to attend daily group counseling sessions at 11:00 and at 3:30.
[2018-03-02 16:00] VITALS: BP 127/89
[2018-03-02] MEDS: QUETIAPINE FUMARATE 25 MG TABLET PO SCH (17:19)
[2018-03-02] MEDS: LORAZEPAM 1 MG TABLET PO SCH ×2 (17:19→21:45)
--- NOTE | 2018-03-02 17:55 | NUR ---
ONE TIME ORDER Per MD Pt received a one time order for Ativan 2 mg. medication administered, will continue to monitor Addendum: 03/02/18 at 1757 by ANGLE GRUBBS RN time was at 1500
--- NOTE | 2018-03-02 18:52 | NUR ---
End Of Shift Report given to car shifter nurse, plan of care reviewed, VS monitored closely q 4 hours. Withdrawal symptoms were closely monitored, medications given as scheduled. Initial CIWA 12. Patient encouraged adequate PO fluid intake as tolerated. Patient presented with tremors sweats, visual hallucinations and anxiety during the day. Pt received PRN Ativan 2mg PO for CIWA of 14 and a onetime dose of Ativan 2mg per MD order. Last CIWA 11. Per patient, Ativan have been helping him with his withdrawal symptoms. Pt ate all of his meals, attended some groups and activities. Patient encouraged to attend all group therapies/sessions to learn new coping skills to recent relapse, patient denies SI/HI. all safety measures in place, bed in lowest locked position, call light within reach. All needs met and attended.
[2018-03-02 20:00] VITALS: BP 95/61
--- NOTE | 2018-03-02 20:00 | NUR ---
CIWA deferred CIWA deferred due to the px is asleep, to assess if the px is awake per doctor's order. We'll continue to monitor.
--- NOTE | 2018-03-02 20:00 | NUR ---
Start of Shift Note Received a 27 y/o male px, admitted for medically supervised withdrawal from ETOH, cocaine and methamphetamine with occasional use of heroin and marijuana. Px was placed on 5 day Ativan taper. Px is tolerating it. Last reported CIWA 11 by AM shift nurse. During the rounds at 1999, px is asleep. Unfinished drinks and some unfolded clothes noted on top of the cabinet. Bed on lowest position, side rails up 2x and call light within reach. We'll continue to monitor.
--- NOTE | 2018-03-02 21:30 | NUR ---
Px woke up Px wakes up. Px appears lethargic with poor eye contact and unshaven. Px makes no complaints at the moment. We'll continue to monitor.
--- NOTE | 2018-03-02 22:45 | NUR ---
CIWA deferred CIWA deferred after an hour of administration of Ativan 2 mg PO, due to the px is asleep, to assess if the px is awake per doctor's order. We'll continue to monitor.
[2018-03-03] VITALS: BP 98/58
[2018-03-03 04:00] VITALS: BP 101/63
--- NOTE | 2018-03-03 07:15 | NUR ---
End of Shift Note During the shift, px slept most of the time. Px slept for 11 hours. No complaints made. Px's oral intake is 250 ml, voided 1x, No BM. No PRN medications given. Last CIWA 7. At 0630, px is asleep on bed in fowlers position. Bed on lowest position, side rails up 2x and call light within reach. We'll continue to monitor. Px is endorsed to AM shift nurse.
--- NOTE | 2018-03-03 07:30 | NUR ---
START OF SHIFT Pt 27 y/o male admitted for medically supervised withdrawal from etoh adn methamphetamine. Pt received in room on bed with eyes closed resting, but easily arousable to name. Pt alert and oriented to name, placel, and time. Perrla. Skin warm and moist to touch. Respirations even and unlabored. Bilateral hand tremors noted. Pt anxious and restless noted. Pt appears disheveled. Food wrappings and empty bottles of water scattered throughout the room. Encouraged to maintain hygiene. It was reported that pt slept for 11 hours last night. Last reported ciwa =7 at 2100. Pt is on a 5 day ativan taper and is on day 3. Bed on lowest position with side rails x2 up for safety. Call light within reach.
[2018-03-03 08:00] VITALS: BP 101/59
[2018-03-03] MEDS: MULTIVITAMINS,THERAPEUTIC TABLET PO SCH (08:28)
[2018-03-03] MEDS: FOLIC ACID 1 MG TABLET PO SCH (08:28)
[2018-03-03] MEDS: THIAMINE HCL 100 MG TABLET PO SCH (08:28)
[2018-03-03] MEDS: ESCITALOPRAM OXALATE 10 MG TABLET PO SCH (08:28)
[2018-03-03] MEDS: QUETIAPINE FUMARATE 25 MG TABLET PO SCH ×3 (08:29→16:41)
[2018-03-03] MEDS ORDERED: LORAZEPAM 1 MG TABLET PO SCH ×3 (09:00→21:00)
[2018-03-03 12:00] VITALS: BP 112/59
[2018-03-03 16:00] VITALS: BP 114/59
--- NOTE | 2018-03-03 18:51 | NUR ---
END OF SHIFT Pt 27 y/o male admitted for medically supervised withdrawal from etoh and methamphetamine. Pt alert and oriented to name, placel, and time. Perrla. Skin warm and moist to touch. Respirations even and unlabored. Bilateral hand tremors noted. Pt anxious and restless noted. Pt appears disheveled. Clothes scattered throughout the room. Encouraged to maintain hygiene. Pt observed mostly isolative to room this morning. Pt did not attend group activity today. Pt was seen by MD. Pt medication compliant. No ASE noted. Ciwa=10@0800, 10@1200, and 9@1600. Pt is on a 5 day ativan taper and is on day 3. Bed on lowest position with side rails x 2 up for safety. Call light within reach.
[2018-03-03 20:00] VITALS: BP 108/59
--- NOTE | 2018-03-03 20:00 | NUR ---
Start of Shift Note Received a 27 y/o male px, admitted for medically supervised withdrawal from ETOH, cocaine and methamphetamine with occasional use of heroin and marijuana. Px was placed on 5 day Ativan taper. Px is tolerating it. Last reported CIWA 9 by AM shift nurse. During the rounds at 1999, px is awake on bed watching TV. Unfinished drinks and some unfolded clothes noted on top of the cabinet. Px appears unshaven, anxious and disheveled. Px stated "my anxiety is 10/10 right now and I have mild visual hallucinations, I see people and different colors." Bed on lowest position, side rails up 2x and call light within reach. We'll continue to monitor.
[2018-03-03] MEDS: IBUPROFEN 400 MG TABLET PO PRN (21:19)
--- NOTE | 2018-03-03 21:19 | NUR ---
PRN Motrin Px complained of body pains of 7/10. Motrin 400 mg/tab, 1 tab given PO. We'll continue to monitor.
[2018-03-03] MEDS: GABAPENTIN 300 MG CAPSULE PO SCH (21:20)
--- NOTE | 2018-03-03 22:20 | NUR ---
Reassessment of Body pains Px stated that his body aches improved. It is now 4-03/10. We'll continue to monitor.
[2018-03-04] VITALS: BP 105/63
[2018-03-04 04:00] VITALS: BP 98/59
--- NOTE | 2018-03-04 04:00 | NUR ---
CIWA deferred CIWA deferred at 0000 and 0400 due to the px is asleep, to assess if the px is awake per doctor's order. We'll continue to monitor.
--- NOTE | 2018-03-04 07:12 | NUR ---
End of Shift Note During the shift at 2118, px received Motrin 400 mg PO for body pains of 05/10, it was effective. Px's oral intake is 1000 ml, voided 2x, No BM. Last CIWA 9. At 0630, px is asleep on bed in fowlers position. Bed on lowest position, side rails up 2x and call light within reach. We'll continue to monitor. Px is endorsed to AM shift nurse.
--- NOTE | 2018-03-04 07:30 | NUR ---
START OF SHIFT Pt 27 y/o male admitted for medically supervised withdrawal from etoh and methamphetamine. Pt received in room on bed with eyes closed resting and the television on, but easily arousable to name. Pt alert and oriented to name, place, and time. Perrla. Skin warm and moist to touch. Respirations even and unlabored. Bilateral hand tremors noted. Pt anxious this morning. Pt appears disheveled. Empty bottles of water scattered throughout the room. Encouraged to maintain hygiene. It was reported that pt slept for 7 hours last night. Last reported ciwa =9 at 2100. Pt is on a 5 day ativan taper and is on day 4. Bed on lowest position with side rails x2 up for safety. Call light within reach.
[2018-03-04 08:00] VITALS: BP 95/43
[2018-03-04] MEDS: FOLIC ACID 1 MG TABLET PO SCH (08:16)
[2018-03-04] MEDS: THIAMINE HCL 100 MG TABLET PO SCH (08:16)
[2018-03-04] MEDS: QUETIAPINE FUMARATE 25 MG TABLET PO SCH ×3 (08:16→16:42)
[2018-03-04] MEDS: LORAZEPAM 1 MG TABLET PO SCH ×3 (08:16→21:06)
[2018-03-04] MEDS: MULTIVITAMINS,THERAPEUTIC TABLET PO SCH (08:16)
[2018-03-04] MEDS: GABAPENTIN 300 MG CAPSULE PO SCH ×2 (08:17→21:06)
[2018-03-04] MEDS ORDERED: ESCITALOPRAM OXALATE 10 MG TABLET PO SCH (09:00)
[2018-03-04] MEDS ORDERED: LORAZEPAM 1 MG TABLET PO SCH (09:00)
--- NOTE | 2018-03-04 10:00 | NUR ---
NSG ENTRY Pt observed in room on bed with eyes closed resting with television on, but easily arousable to name.
[2018-03-04 12:09] VITALS: BP 98/62
[2018-03-04 16:28] VITALS: BP 102/48
--- NOTE | 2018-03-04 18:37 | NUR ---
END OF SHIFT Pt 27 y/o male admitted for medically supervised withdrawal from etoh and methamphetamine. Pt alert and oriented to name, place, and time. Perrla. Skin warm and moist to touch. Respirations even and unlabored. Bilateral hand tremors noted. Pt anxious and restless noted. Pt with low motivation for self care. Pt appears disheveled. Food wrappings and empty water/ soda bottles scattered throughout the room. Encouraged to maintain hygiene. Pt observed mostly isolative to room this morning. Pt did not attend group activity today. Pt was seen by MD. Pt medication compliant. No ASE noted. Ciwa=9@0800, 9@1200, and 9@1600. Pt is on a 5 day ativan taper and is on day 4. Bed on lowest position with side rails x 2 up for safety. Call light within reach.
--- NOTE | 2018-03-04 19:30 | NUR ---
Start of Shift Pt is a 27 y/o male admitted 03/01/18 for medically managed withdrawal/detox from ETOH, Herion, Methamphetamine salts, Cocaine and Marijuana. Pt is found awake but drowsy in bed. Pt able to answer questions and follow commands appropriately, A&O x 4. Pt c/o generalized body aches 5/10, 5/10 considered acceptable by pt. Evening meds reviewed with pt, pt refuses pain med at present to wait for scheduled meds. Will continue to monitor pt for shift, promptly attending to all needs.
[2018-03-04 20:00] VITALS: BP 106/66
[2018-03-04] MEDS: diphenhydrAMINE 50 MG CAPSULE PO PRN (21:05)
--- NOTE | 2018-03-04 21:05 | NUR ---
PRN Med Benedryl 50mg PO given for insomnia. Will reassess in 1 hour, and continue to monitor patient and promptly attend to all needs
--- NOTE | 2018-03-04 22:05 | NUR ---
PRN Reassessment Benedryl 50mg PO given for insomnia 1 hour prior. At present pt sleeping, RR 14, even and non labored. Will continue to monitor and promptly attend to all patient needs
--- NOTE | 2018-03-05 | NUR ---
0000 VS's CIWA Deferred Midnight VS's, CIWA deferred r/t pt sleeping/refused. RR 14, even and nonlabored. Will continue to monitor, promptly attending to all pt needs
--- NOTE | 2018-03-05 04:00 | NUR ---
0400 VS's CIWA Deferred 0400 VS's, CIWA deferred r/t pt sleeping/refused. RR 14, even and nonlabored. Will continue to monitor, promptly attending to all pt needs
--- NOTE | 2018-03-05 06:39 | NUR ---
Start of Shift Pt is a 27 y/o male admitted 03/01/18 for medically managed withdrawal/detox from ETOH, Herion, Methamphetamine salts, Cocaine and Marijuana. Pt appears sad, depressed, cooperative. Voice is low/even and purposeful, direct (normal) eye contact. Pt able to discuss situation. Last CIWA 16 at 20:00. PRN meds for shift include Benedryl 50mg PO for insomnia . Telephone call from mother received, assurances made as to pt wellbeing. Pt slept for 9 hours, with 1125 intake, 2 voids, and 0 BMs. Will continue to monitor pt for shift, promptly attending to all needs. Addendum: 03/05/18 at 0640 by VENKATESH MORILLO RN End of Shift Note
[2018-03-05 08:03] VITALS: BP 113/69
--- NOTE | 2018-03-05 08:07 | NUR ---
START OF SHIFT: RECEIVED PT A/O X 4. HE PRESENTS WITH BLUNTED AFFECT AND DEPRESSED MOOD. HE DENIES S/I AND H/I. ATIVAN TAPER IN PROGRESS. CIWA 12. HE REPORTS ANXIETY,RESTLESSNESS AND MUSCLE ACHES. HE STATES HE IS EATING 75% OF MEALS AND SLEEPING OK. ENCOURAGED GROUP ATTENDANCE TO IMPROVE COPING SKILLS AND PREVENT RELAPSE. WILL CONTINUE TO MONITOR AND MANAGE S/S OF W/D.
[2018-03-05] MEDS: GABAPENTIN 300 MG CAPSULE PO SCH ×3 (08:47→21:14)
[2018-03-05] MEDS: FOLIC ACID 1 MG TABLET PO SCH (08:48)
[2018-03-05] MEDS: THIAMINE HCL 100 MG TABLET PO SCH (08:48)
[2018-03-05] MEDS: QUETIAPINE FUMARATE 25 MG TABLET PO SCH ×3 (08:48→17:38)
[2018-03-05] MEDS: MULTIVITAMINS,THERAPEUTIC TABLET PO SCH (08:49)
[2018-03-05] MEDS: ESCITALOPRAM OXALATE 10 MG TABLET PO SCH (08:49)
[2018-03-05] MEDS ORDERED: LORAZEPAM 1 MG TABLET PO SCH (09:00)
[2018-03-05] MEDS ORDERED: IBUP-1953 PO (09:15)
[2018-03-05] MEDS ORDERED: GABA-534 PO (09:15)
[2018-03-05] MEDS ORDERED: CLON0.1T14 PO (09:15)
[2018-03-05] MEDS ORDERED: DIPH50CA37 PO (09:15)
[2018-03-05] MEDS ORDERED: HYDROXYZINE PAMOATE 25 MG CAPSULE PO PRN (10:00)
[2018-03-05] MEDS ORDERED: METHOCARBAMOL 500 MG TABLET PO PRN (10:00)
[2018-03-05 12:00] VITALS: BP 108/60
[2018-03-05 16:00] VITALS: BP 101/65
--- NOTE | 2018-03-05 16:53 | NUR ---
1600 CIWA DEFERRED AND 1500 MEDS HELD PT SLEEPING. RESPIRATIONS EVEN AND UNLABORED. BED LOCKED AND LOW. CALL CUNHA IN REACH.
--- NOTE | 2018-03-05 17:20 | NUR ---
Therapist prompted client to attend daily group sessions. Client stated that he will attend if he is feeling well.
--- NOTE | 2018-03-05 18:38 | NUR ---
END OF SHIFT: PT ISOLATED MOST OF SHIFT. SHE STATES THE ATIVAN HAS BEEN EFFECTIVE IN REDUCING S/S OF W/D WHICH INCLUDED ANXIETY,RESTLESSNESS AND IRRITABILITY. CIWA AT NOON WAS 6. HE SLEPT IN AFTERNOON AND CIWA DEFERRED. HE ISOLATED MOST OF SHIFT AND ATTENDED A GROUP IN THE MORNING. HE IS SCHEDULED FOR DISCHARGE IN THE MORNING. WILL PASS SHIFT REPORT TO ONCOMING NIGHT NURSE.
[2018-03-05 20:00] VITALS: BP 121/77
--- NOTE | 2018-03-05 20:00 | NUR ---
Start of Shift Note Received a 27 y/o male px, admitted for medically supervised withdrawal from ETOH, cocaine and methamphetamine with occasional use of heroin and marijuana. Px is to be D/C tomorrow 03/06/2018. Px finished 5 day Ativan taper. Px tolerated it. Last reported CIWA 6 by AM shift nurse. During the rounds at 1999, px is awake on bed in left side lying position. Unfinished drinks noted on bed side table and some unfolded clothes noted on top of the cabinet. Px is unshaven. Px stated that his anxiety is at 10/10. Px verbalized "I think I am too anxious for tomorrow, it will be a new environment again." Px requested for Clonidine. Bed on lowest position, side rails up 2x and call light within reach. We'll continue to monitor.
[2018-03-05] MEDS: diphenhydrAMINE 50 MG CAPSULE PO PRN (21:14)
[2018-03-05] MEDS: CLONIDINE HCL 0.1 MG TABLET PO PRN (21:14)
--- NOTE | 2018-03-05 21:14 | NUR ---
PRN medications Px received Benadryl 50 mg/cap, 1 cap PO for insomnia and Clonidine 0.1 mg/tab, 1 tab PO for anxiety. We'll continue to monitor.
--- NOTE | 2018-03-05 22:15 | NUR ---
Reassessment of anxiety Px stated "my anxiety improved a little." CIWA at the moment is 8. We'll continue to monitor.
[2018-03-06] VITALS: BP 126/81
[2018-03-06 04:00] VITALS: BP 123/74
--- NOTE | 2018-03-06 07:08 | NUR ---
End of Shift Note The px is to be D/C today 03/06/2018. During the shift at 2114, px received Clonidine 0.1 mg PO and Benadryl 50 mg PO as PRN medications for anxiety and insomnia respectively. Last CIWA 8. Pxs oral intake is 900 ml, voided 2x, No BM. Slept for total of 7 hours. At 0630, px is asleep on bed in fowlers position. Bed on lowest position, side rails up 2x and call light within reach. We'll continue to monitor. Px endorsed to AM shift nurse.
--- NOTE | 2018-03-06 07:15 | NUR ---
START OF SHIFT PATIENT IS A 27YR OLD MALE ADMITTED TO [facility] ON 02/23/18 FOR A MEDICALLY SUPERVISED DETOX FROM ALCOHOL, METHAMPHETAMINE, COCAINE, HEROIN AND MARIJUANA. PATIENT IS TO BE DISCHARGED TODAY TO : "[facility] " . PATIENT HAS COMPLETED A 3 DAY ATIVAN TAPER. PRN MEDS GIVEN ON PM SHIFT : CLONIDINE AND BENADRYL. PATIENT SLEPT FOR 8 HOURS, LAST CIWA 8. PATIENT IS ASLEEP IN BED AT THIS TIME, BREATHING EVEN AND UNLABORED, SIDE RAILS UP X 2. WILL CONTINUE WITH DC PLAN OF CARE.
[2018-03-06 08:00] VITALS: BP 107/65
[2018-03-06] MEDS: ESCITALOPRAM OXALATE 10 MG TABLET PO SCH (08:21)
[2018-03-06] MEDS: THIAMINE HCL 100 MG TABLET PO SCH (08:21)
[2018-03-06] MEDS: FOLIC ACID 1 MG TABLET PO SCH (08:21)
[2018-03-06] MEDS: GABAPENTIN 300 MG CAPSULE PO SCH (08:21)
[2018-03-06] MEDS: MULTIVITAMINS,THERAPEUTIC TABLET PO SCH (08:21)
--- NOTE | 2018-03-06 08:21 | NUR ---
PRN MEDS ROBAXIN 500MG PO GIVEN FOR C/O JOINT PAIN 5/10 VISTARIL 25MG PO GIVEN FOR C/O ANXIETY WILL REASSESS
[2018-03-06] MEDS: QUETIAPINE FUMARATE 25 MG TABLET PO SCH (08:22)
--- NOTE | 2018-03-06 09:15 | NUR ---
PRN REASSESS PATIENT STATES MEDICATION EFFECTIVE, HE FEELS LESS ANXIOUS AND PAIN LEVEL NOW 2/10
--- NOTE | 2018-03-06 09:19 | NUR ---
DISCHARGE NOTE PATIENT DISCHARGED THIS AM, ALL DC PAPERWORK SIGNED AND DATED, ALL BELONGINGS AND PRESCRIPTIONS PLACED IN PATIENT BAG. PATIENT DENIES AND SI/HI. LAST VITALS BP 107/65, HR 74, RR 16, T 98 PATIENT AMBULATED OFF THE UNIT @ 0919 AND WAS PICKED UP AT HOSPITAL BY PRIVATE CAR " [employer] " FOR TRANSPORT TO " [facility]".
== END 2018-03-06 09:20 | disposition home or self-care (01) | DRG 895 ==
LOC: SRC 11:51
PROVIDERS: ADMIT Internal Medicine; ATTEND Internal Medicine
PROC: HZ2ZZZZ Detoxification Services for Substance Abuse Treatment (ICD-10-PCS; principal; 2018-03-01)
PROC: HZ31ZZZ Individual Counseling for Substance Abuse Treatment, Behavioral (ICD-10-PCS; 2018-03-02)
PROC: HZ41ZZZ Group Counseling for Substance Abuse Treatment, Behavioral (ICD-10-PCS; 2018-03-02)
DX: F10.232 Alcohol dependence with withdrawal with perceptual disturbance (principal); I15.9 Secondary hypertension, unspecified; F15.20 Other stimulant dependence, uncomplicated; F33.1 Major depressive disorder, recurrent, moderate; F11.10 Opioid abuse, uncomplicated; F13.239 Sedative, hypnotic or anxiolytic dependence with withdrawal, unspecified; Y90.9 Presence of alcohol in blood, level not specified; F41.9 Anxiety disorder, unspecified; F17.210 Nicotine dependence, cigarettes, uncomplicated; F12.10 Cannabis abuse, uncomplicated; F14.10 Cocaine abuse, uncomplicated; Z79.899 Other long term (current) drug therapy; Z81.8 Family history of other mental and behavioral disorders; Z81.1 Family history of alcohol abuse and dependence
CPT/HCPCS: 36415; 70030-TC; 80307; 80324; 80349; 83735; 85025; 86592; 86705; 86803; 87340; 87806; A4663; G0480; J3411; Q0163